=== PATIENT | female | born 1995 | race Two or more races ===

== ENCOUNTER 2017-02-15 19:01 | Emergency (ER) | payer MEDICAID ==
[~2017-02-15] VITALS: Ht 154.9 cm; Wt 46.0 kg
[2017-02-16] LABS: CLARITY URINE CLEAR (CLEAR); COLOR URINE YELLOW (YELLOW); GLUCOSE URINE NEGATIVE (NEGATIVE); KETONES URINE NEGATIVE (NEGATIVE); LEUKOCYTE ESTERASE URINE NEGATIVE (NEGATIVE); NITRITE URINE NEGATIVE (NEGATIVE); OCCULT BLOOD URINE NEGATIVE (NEGATIVE); PROTEIN URINE NEGATIVE (NEGATIVE); SPECIFIC GRAVITY URINE 1.029 (1.005-1.030); UROBILINOGEN URINE 0.2 E.U./dL (0.2-1.0)
[2017-02-16 00:09] LABS: BASOPHILS % 0.7 % (0.0-2.0); HEMATOCRIT. 31.5 % (36.0-48.0); HEMOGLOBIN. 10.2 g/dL (12.0-16.0); LYMPHOCYTES % 51.5 % (20.0-50.0); MEAN CORPUSCULAR HEMOGLOBIN 23.3 pg (28.0-32.0); MEAN CORPUSCULAR VOLUME 71.6 fL (81.0-99.0); MEAN PLATELET VOLUME 8.2 fl (7.4-10.4); MONOCYTES % 9.3 % (2.0-8.0); NEUTROPHILS % 34.5 % (40.0-76.0); PLATELET 242 x1000/uL (130-400); RED CELL DISTRIBUTION WIDTH 14.7 % (11.6-14.6)
[2017-02-16 00:13] LABS: CHLORIDE 109 mEq/L (98-107)
[2017-02-16 00:16] LABS: INR 1.1; PROTHROMBIN TIME 11.4 sec (9.4-11.6)
[2017-02-16 00:22] LABS: CARBON DIOXIDE 25 mEq/L (21-32)
[2017-02-16 02:03] VITALS: BP 100/76
== END 2017-02-16 08:45 | disposition home or self-care (01) ==
LOC: ER 19:02
DX: R10.12 Left upper quadrant pain (principal); F17.200 Nicotine dependence, unspecified, uncomplicated; F12.10 Cannabis abuse, uncomplicated
CPT/HCPCS: 36415; 76830; 76856; 80053; 81003; 81025; 83690; 84702; 85025; 85610; 99285

== ENCOUNTER 2017-03-02 15:29 | Emergency (ER) | payer MEDICAID ==
[~2017-03-02] VITALS: Ht 154.9 cm; Wt 45.0 kg
[2017-03-02 15:34] VITALS: BP 103/52
== END 2017-03-02 20:00 | disposition left against medical advice (07) ==
LOC: ER 15:29
DX: R10.9 Unspecified abdominal pain (principal); Z53.21 Procedure and treatment not carried out due to patient leaving prior to being seen by health care provider

== ENCOUNTER 2017-03-03 14:18 | Emergency (ER) | payer MEDICAID ==
[~2017-03-03] VITALS: Ht 154.9 cm; Wt 45.0 kg
[2017-03-03] MEDS ORDERED: VISCOUS LIDOCAINE 2% 15 ML UDC PO STA (15:34)
[2017-03-03] MEDS ORDERED: MAGNESIUM/ALUMINUM HYDROXIDE/SIMETHICONE 30ML UDC PO STA (15:34)
[2017-03-03] MEDS ORDERED: ACETAMINOPHEN 325MG TABLET PO STA (15:34)
[2017-03-03 15:57] LABS: BASOPHILS % 1.3 % (0.0-2.0); HEMATOCRIT. 31.9 % (36.0-48.0); HEMOGLOBIN. 10.4 g/dL (12.0-16.0); LYMPHOCYTES % 45.2 % (20.0-50.0); MEAN CORPUSCULAR HEMOGLOBIN 23.2 pg (28.0-32.0); MEAN CORPUSCULAR VOLUME 71.5 fL (81.0-99.0); MEAN PLATELET VOLUME 8.2 fl (7.4-10.4); MONOCYTES % 11.6 % (2.0-8.0); NEUTROPHILS % 38.9 % (40.0-76.0); PLATELET 272 x1000/uL (130-400); RED BLOOD CELL COUNT 4.46 mill/uL (4.2-5.4); RED CELL DISTRIBUTION WIDTH 14.6 % (11.6-14.6)
[2017-03-03 16:01] LABS: CHLORIDE 106 mEq/L (98-107)
[2017-03-03 16:04] LABS: INR 1.1; PROTHROMBIN TIME 11.6 sec (9.4-11.6)
[2017-03-03 16:06] LABS: CARBON DIOXIDE 27 mEq/L (21-32)
[2017-03-03 16:30] LABS: CLARITY URINE CLEAR (CLEAR); COLOR URINE YELLOW (YELLOW); GLUCOSE URINE NEGATIVE (NEGATIVE); KETONES URINE 1+ (NEGATIVE); LEUKOCYTE ESTERASE URINE NEGATIVE (NEGATIVE); NITRITE URINE NEGATIVE (NEGATIVE); OCCULT BLOOD URINE NEGATIVE (NEGATIVE); PROTEIN URINE TRACE (NEGATIVE); SPECIFIC GRAVITY URINE 1.025 (1.005-1.030)
[2017-03-03 16:52] LABS: *AMPHETAMINES SCREEN URINE NEGATIVE (NEGATIVE); *BARBITURATES SCREEN URINE NEGATIVE (NEGATIVE); *BENZODIAZEPINES SCREEN URINE NEGATIVE (NEGATIVE); *COCAINE SCREEN URINE NEGATIVE (NEGATIVE); CANNABINOID URINE SCREEN PRESUMTIVE POSITIVE (NEGATIVE); METHADONE URINE SCREEN NEGATIVE (NEGATIVE); OPIATES URINE SCREEN NEGATIVE (NEGATIVE); PHENCYCLIDINE URINE SCREEN NEGATIVE (NEGATIVE)
[2017-03-03 18:25] VITALS: BP 120/68
== END 2017-03-03 19:01 | disposition home or self-care (01) ==
LOC: ER 14:52
DX: R10.9 Unspecified abdominal pain (principal); F12.10 Cannabis abuse, uncomplicated
CPT/HCPCS: 36415; 80053; 80305; 81001; 81025; 83690; 85025; 85610; 99284

== ENCOUNTER 2017-03-21 13:27 | Emergency (ER) | payer MEDICAID ==
[~2017-03-21] VITALS: Ht 154.9 cm; Wt 45.0 kg
[2017-03-21 13:34] VITALS: BP 99/54
[2017-03-21] MEDS ORDERED: OMEP20TA15 PO (13:39)
== END 2017-03-21 17:21 | disposition left against medical advice (07) ==
LOC: ER 14:50
DX: R10.9 Unspecified abdominal pain (principal); Z53.21 Procedure and treatment not carried out due to patient leaving prior to being seen by health care provider

== ENCOUNTER 2017-03-22 11:46 | Emergency (ER) | payer MEDICAID ==
[~2017-03-22] VITALS: Ht 157.5 cm; Wt 44.0 kg
[~2017-03-22 11:46] MED LIST: OMEP20TA15 PO
[2017-03-22] MEDS ORDERED: IBUPROFEN 600MG TABLET PO STA (15:46)
[2017-03-22 16:24] LABS: BASOPHILS % 0.8 % (0.0-2.0); HEMATOCRIT. 32.7 % (36.0-48.0); HEMOGLOBIN. 10.6 g/dL (12.0-16.0); LYMPHOCYTES % 29.4 % (20.0-50.0); MEAN CORPUSCULAR HEMOGLOBIN 23.2 pg (28.0-32.0); MEAN CORPUSCULAR VOLUME 71.7 fL (81.0-99.0); MEAN PLATELET VOLUME 8.3 fl (7.4-10.4); MONOCYTES % 8.6 % (2.0-8.0); NEUTROPHILS % 60.2 % (40.0-76.0); PLATELET 276 x1000/uL (130-400); RED BLOOD CELL COUNT 4.55 mill/uL (4.2-5.4); RED CELL DISTRIBUTION WIDTH 14.4 % (11.6-14.6)
[2017-03-22 16:31] LABS: CHLORIDE 108 mEq/L (98-107)
[2017-03-22 16:33] LABS: CARBON DIOXIDE 24 mEq/L (21-32)
[2017-03-22 17:10] LABS: CLARITY URINE CLEAR (CLEAR); COLOR URINE YELLOW (YELLOW); GLUCOSE URINE NEGATIVE (NEGATIVE); KETONES URINE 4+ (NEGATIVE); LEUKOCYTE ESTERASE URINE NEGATIVE (NEGATIVE); NITRITE URINE NEGATIVE (NEGATIVE); OCCULT BLOOD URINE 2+ (NEGATIVE); PROTEIN URINE NEGATIVE (NEGATIVE); SPECIFIC GRAVITY URINE 1.026 (1.005-1.030); UROBILINOGEN URINE 0.2 E.U./dL (0.2-1.0)
[2017-03-22 18:08] VITALS: BP 96/46
== END 2017-03-22 18:17 | disposition home or self-care (01) ==
LOC: ER 13:08
DX: N92.0 Excessive and frequent menstruation with regular cycle (principal); F12.10 Cannabis abuse, uncomplicated
CPT/HCPCS: 36415; 76830; 76856; 80053; 81001; 81025; 83690; 85025; 99285; Z7610